=== PATIENT | female | born 1955 | race Caucasian/White ===

== ENCOUNTER → 2018-10-07 | Outpatient (CLI) | payer OTHER ==
--- NOTE | 2018-10-07 09:10 | US ---
EXAMINATION TYPE: US liver DATE OF EXAM: 10/07/2018 COMPARISON: NONE CLINICAL HISTORY: R94.5 Abnormal results of liver function test. Abnormal liver function tests EXAM MEASUREMENTS: Liver Length: 14.2 cm Gallbladder Wall: 0.1 cm CBD: 0.3 cm Right Kidney: 9.3 x 4.4 x 4.3 cm Pancreas: obscured by overlying midline bowel gas Liver: Mildly increased in echo pattern Gallbladder: wnl Evidence for sonographic Chow's sign: no CBD: wnl Right Kidney: wnl IMPRESSION: Pattern to the liver is nonspecific and be seen with fatty infiltration or hepatocellular disease correlate clinically
== END | disposition home or self-care (01) ==
LOC: RADUSWWP 08:24
PROVIDERS: ATTEND Family Medicine
DX: R94.5 Abnormal results of liver function studies (principal); Z88.5 Allergy status to narcotic agent; Z91.040 Latex allergy status; Z88.0 Allergy status to penicillin
CPT/HCPCS: 76705

== ENCOUNTER → 2020-10-02 | Outpatient (CLI) | payer BC ==
[2020-10-02 10:33] LABS: Basophils # (A) 0.03 X 10*3/uL (0.00-0.10); Basophils % (A) 0.4 %; Eosinophils # (A) 0.03 X 10*3/uL (0.04-0.35); Eosinophils % (A) 0.4 %; HCT 34.6 % (37.2-46.3); HGB 11.6 g/dL (12.0-15.0); Lymphocytes # (A) 1.41 X 10*3/uL (0.90-5.00); Lymphocytes % (A) 20.2 %; MCH 31.8 pg (27.0-32.0); MCHC 33.5 g/dL (32.0-37.0); MCV 94.8 fL (80.0-97.0); Mean Platelet Volume 10.6 fL (9.5-12.2); Monocytes # (A) 0.86 X 10*3/uL (0.20-1.00); Monocytes % (A) 12.3 %; Neutrophils # (A) 4.63 X 10*3/uL (1.80-7.70); Neutrophils % (A) 66.4 %; Platelet Count 238 X 10*3/uL (140-440); RBC 3.65 X 10*6/uL (4.10-5.20); WBC 6.98 X 10*3/uL (4.50-10.00)
[2020-10-02 10:40] LABS: ALT 13 U/L (8-44); AST 18 U/L (13-35); African American GFR (CKD) 78.3 (60.0-200.0); Albumin/Globulin Ratio 1.43 (1.60-3.17); Alkaline Phosphatase 100 U/L (41-126); BUN/Creat Ratio 13.33 Ratio (12.00-20.00); Calcium 9.8 mg/dL (8.7-10.3); Carbon Dioxide 26.9 mmol/L (21.6-31.8); Chloride 99 mmol/L (96-109); Chol/HDL Ratio 1.95; Cholesterol 195 mg/dL (0-200); Glucose 90 mg/dL (70-110); Non-African American GFR(CKD) 67.6 (60.0-200.0); Potassium 4.3 mmol/L (3.5-5.5); Sodium 133 mmol/L (135-145); Total Bilirubin 0.7 mg/dL (0.3-1.2); Total Protein 7.3 g/dL (6.2-8.2); Triglycerides <50.0 mg/dL (0.0-149.0)
== END | disposition home or self-care (01) ==
LOC: LABWHC1 07:14
PROVIDERS: ATTEND Nurse Practitioner
DX: Z00.00 Encounter for general adult medical examination without abnormal findings (principal); R53.83 Other fatigue
CPT/HCPCS: 36415; 80053; 80061; 82306; 84439; 84443; 85025

== ENCOUNTER → 2023-05-23 | Day surgery (SDC) | payer BC, MEDICARE ==
[2023-05-16 15:33] VITALS: BMI 23.2
[~2023-05-23] MED LIST: DEXAMETHASONE SOD PHOSPHATE 4 MG/ML 1 ML VIAL IV ONE; HYDROmorphone 0.5 MG/0.5 ML SYRINGE IVP PRN; LACTATED RINGERS 1,000 ML IV SCH; LIDOCAINE 1% (10MG/ML) FOR IV START INTRADERMA PRN; ONDANSETRON 4 MG/2 ML VIAL IVP ONE; droPERidol 5 MG/2 ML VIAL IVP PRN
[2023-05-23 07:08] VITALS: BP 119/72; PULSE 65; RESP 20; TEMP 97
== END ==
LOC: OR 05:47
PROVIDERS: ATTEND Podiatrist
DX: Z53.8 Procedure and treatment not carried out for other reasons (principal); M19.071 Primary osteoarthritis, right ankle and foot; F10.90 Alcohol use, unspecified, uncomplicated; Z88.0 Allergy status to penicillin; Z88.5 Allergy status to narcotic agent; Z91.040 Latex allergy status; Z82.49 Family history of ischemic heart disease and other diseases of the circulatory system; Z79.899 Other long term (current) drug therapy
CPT/HCPCS: 84132; J1100; J2405

== ENCOUNTER 2023-06-06 07:11 | Inpatient (IN) | payer MEDICARE ==
[~2023-06-06 07:11] MED LIST changes: -HYDROmorphone 0.5 MG/0.5 ML SYRINGE IVP PRN; -LACTATED RINGERS 1,000 ML IV SCH; -LIDOCAINE 1% (10MG/ML) FOR IV START INTRADERMA PRN; +MIDAZOLAM 2 MG/2 ML VIAL IV PRN; -droPERidol 5 MG/2 ML VIAL IVP PRN; +fentaNYL (PF) 50 MCG/ML 2 ML AMP IV PRN
[2023-06-06] MEDS: LACTATED RINGERS 1,000 ML IV SCH (07:50)
[2023-06-06] MEDS ORDERED: MIDAZOLAM 2 MG/2 ML VIAL IVP ONE (08:20)
[2023-06-06] MEDS ORDERED: LABETALOL SYRINGE 5 MG/ML (4 ML SYR) IVP ONE ×2 (08:32→08:56)
[2023-06-06] MEDS ORDERED: PROPOFOL 10 MG/ML 20 ML VIAL IV ONE (09:28)
[2023-06-06] MEDS ORDERED: LIDOCAINE 1% INJ 10MG/ML (20 ML MDV) ONE (09:28)
[2023-06-06] MEDS ORDERED: MIDAZOLAM 2 MG/2 ML VIAL ONE (09:28)
[2023-06-06] MEDS ORDERED: fentaNYL (PF) 50 MCG/ML 2 ML AMP ONE (09:28)
[2023-06-06] MEDS ORDERED: DEXAMETHASONE SOD PHOSPHATE 4 MG/ML 1 ML VIAL ONE (09:28)
[2023-06-06] MEDS ORDERED: ROPIVACAINE 5 MG/ML 30 ML VIAL ONE (09:28)
[2023-06-06] MEDS ORDERED: hydrALAZINE HCL 20 MG/ML 1 ML VIAL IVP ONE (09:29)
[2023-06-06] MEDS ORDERED: LACTATED RINGERS 1,000 ML IV ONE (09:50)
[2023-06-06] MEDS ORDERED: ceFAZolin 1,000 MG in SODIUM CHLORIDE 0.9% 1,000 ML IRRIGATION ONE (09:51)
--- NOTE | 2023-06-06 11:45 | P.ANPRN ---
Procedure Note - Anesthesia - Nerve Block Performed Right Adductor Canal Single Time Out Performed: Yes Date of Procedure: 06/06/23 Procedure Start Time: 08:17 Procedure Stop Time: 08:24 Location of Patient: PreOp Indication: Acute Post-Operative Pain, Requested by Surgeon Sedation Type: Sedate with meaningful contact maintained Preparation: Sterile Prep, Sterile Dressing Position: Supine Catheter: None Needle Types: Facet Needle Gauge: 20 Ultrasound used to visualize needle placement: Yes Ultrasound used to observe medication spread: Yes Injectate: 0.5% Ropivacaine (see comment for volume) (15 ml + decadron 2 mg) Blood Aspirated: No Pain Paresthesia on Injection Noted: No Resistance on Injection: Normal Image Stored and Saved: Yes Events: Uneventful and Well Tolerated Right Popliteal Single Time Out Performed: Yes Date of Procedure: 06/06/23 Procedure Start Time: : Procedure Stop Time: 08:32 Location of Patient: PreOp Indication: Acute Post-Operative Pain, Requested by Surgeon Sedation Type: Sedate with meaningful contact maintained Preparation: Sterile Prep, Sterile Dressing Position: Left Lateral Catheter: None Needle Types: Facet Needle Gauge: 20 Ultrasound used to visualize needle placement: Yes Ultrasound used to observe medication spread: Yes Injectate: 0.5% Ropivacaine (see comment for volume) (15 ml + decadron 2 mg) Blood Aspirated: No Pain Paresthesia on Injection Noted: No Resistance on Injection: Normal Image Stored and Saved: Yes Events: Uneventful and Well Tolerated
[2023-06-06] MEDS ORDERED: LABETALOL 5 MG/ML VIAL MDV IVP ONE (12:37)
--- NOTE | 2023-06-06 12:37 | P.OP ---
Date of Procedure: 06/06/23 Preoperative Diagnosis: Primary osteoarthritis navicular cuneiform joint right foot Postoperative Diagnosis: Same Procedure(s) Performed: Navicular cuneiform arthrodesis right foot Implants: Medline naviculocuneiform fusion plate with screws DBM allograft Anesthesia: SANTOSH Surgeon: Joshua Adler Estimated Blood Loss (ml): 3 Pathology: none sent Condition: stable Disposition: PACU Description of Procedure: Prior to the patient being brought to the operating room, anesthesia administered nerve block on the lower extremity. The patient was brought into the operative room and placed on table in supine position. Timeout was taken to confirm correct patient identifiers, correct laterally of surgery, and correct procedure. Once all staff in the room were in agreement the Timeout, the patient was induced placed under general anesthesia. A well-padded tourniquet was placed on the right calf and then the right foot was prepped and draped usual manner. The right leg was exsanguinated and the tourniquet inflated to 250 mmHg. Utilizing fluoroscopic guidance the first navicular cuneiform joint was identified with metallic marker. Small linear incision was made over the medial aspect of the navicular cuneiform joint. The incision was deepened down to the subcutaneous tissue careful to identify, avoid, and retract any neurovascular structures and cauterize any bleeding vessels. Blunt dissection was then carried down to level the joint capsule. The dorsal plantar incision was made through the medial joint capsule. An osteotome was inserted into the joint surfaces to distract the joint. Utilizing direct fluoroscopic visualization, a rotary bur was inserted into the joint and utilized to remove the articular cartilage as well as subchondral bone. Once completed fluoroscopy was used to make sure that the edges of the joint would come together which they did. Aggressive fenestration was performed of the conjoining surfaces of the arthrodesis site. The wound is then thoroughly irrigated with antibiotic saline. DBM allograft was then placed between the arthrodesis segments. A Medline navicular cuneiform plate was placed across the arthrodesis site. It was adjusted under fluoroscopy until it was properly aligned. It was then temporarily fixated on the navicular site. Locking screws were placed in the dorsal distal and plantar distal holes of the plate within the body of the cuneiform. Then the drill guide was inserted into the compression slot drilling was done across the arthrodesis site. Screw was inserted into the compression slot and advanced until the head of the screw engaged the plate and compressed the arthrodesis site. For scopic imaging showed that the joint was indeed compressed. The proximal dorsal and proximal plantar screws were placed in the plate through the navicular. Final fluoroscopic imaging showed good compression across the arthrodesis site and proper placement of hardware. The wound is irrigated with antibiotic saline. Subcu closure was done with 4-0 Monocryl and skin closure done with 4-0 Stratafix in a running subarticular manner. Dermal glue was applied Lunder dry then covered Steri-Strips, Arthrex jumpstart dressing, and a dry sterile dressing. Tourniquet was released and capillary refill return to all digits on the foot. The patient's placed a well-padded, well molded plaster posterior mold/sugar tong splint. Ankle and foot were held in neutral position until the splint was dried. Then anesthesia was reversed and the patient was taken recovery with vital signs stable
[2023-06-06] MEDS ORDERED: NALOXONE 0.4 MG/ML 1 ML VIAL IV PRN (14:26)
[2023-06-06] MEDS ORDERED: HYDROmorphone 1 MG/ML 1 ML SYRINGE IVP PRN (14:26)
[2023-06-06] MEDS ORDERED: ONDANSETRON 4 MG/2 ML VIAL IVP PRN (14:26)
[2023-06-06] MEDS ORDERED: HYDROcodone/APAP 5-325MG 1 EACH TAB PO PRN (14:26)
[2023-06-06] MEDS ORDERED: MELATONIN 3 MG TABLET PO PRN (14:26)
[2023-06-06] MEDS ORDERED: bisacodyL 5 MG TABLET.DR PO PRN (14:26)
[2023-06-06] MEDS ORDERED: ACETAMINOPHEN TAB 325 MG TAB PO PRN (14:26)
[2023-06-06] MEDS ORDERED: LORazepam 2 MG/ML INJ IV STA (14:28)
[2023-06-06] MEDS ORDERED: cloNIDine HCL 0.1 MG TAB PO PRN (14:37)
[2023-06-06] MEDS ORDERED: LORazepam 2 MG/ML INJ IV PRN ×3 (15:20)
--- NOTE | 2023-06-06 15:21 | P.HPIM ---
History of Present Illness H&P Date: 06/06/23 Patient is a 67-year-old female with daily alcohol intake and arthritis who initially presented for outpatient elective fusion and allograft of the right. In preop she had some elevated blood pressures which improved with medication, however postoperatively her blood pressure remained elevated despite doses labetalol 5 mg and we were asked to admit the patient for further monitoring. Patient seen and examined at bedside. She denies any chest pain, shortness breath, nausea, vomiting, lightheadedness, dizziness, she denies any blurry vision,. She had her BP done at Dr. Lind office 2 weeks ago and her BP was 120/80. This is the 16th anniveersary of her Son's . She does drink approx 6 beers daily, but has cute down to 3 pre surgery. Her last srink we yesterday morning. Vital signs reviewed General: nontoxic, no distress, appears at stated age Derm: warm, dry Eyes: EOMI, no lid lag, anicteric sclera, pupils equal round reactive to light ENT: Nose and ears atraumatic, no thrush, no pharyngeal erythema Cardiovascular: S1S2 reg, no murmur, positive posterior tibial pulse bilateral, no edema, capillary refill less than 2 seconds Lungs: clear to auscultation bilateral, no rhonchi, no rales, no wheeze, no accessory muscle use Abdominal: soft, nontender to palpation, no guarding, no appreciable organomegaly, normal bowel sounds Ext: no gross muscle atrophy, no contractures Neuro: CN II-XII grossly intact, degenerative want patient is unable to feel her right leg or move her right leg, muscle movement and touch intact in left lower extremity and bilateral upper extremities Psych: Alert, oriented, upset and anxious Assessment/Plan: Elevated blood pressures in a patient without known hypertension Anxiety related to anniversary of her son's Daily alcohol use -Try Ativan 0.5 mg IV 1 now and then every 6 hours as needed. If blood pressures remain greater than 170 after Ativan can try Catapres 0.1 mg q 8 prn hypertension. -Continue to follow blood pressures. If they remain elevated by tomorrow mo rning will start patient on long-term antihypertensive medication - CIWA with Ativan Right foot fusion due to osteoarthritis -Per Dr. Roberson's recommendations we'll give Tylenol 650 mg and Toradol 50 mg every 6 hours scheduled for the first 24 hours, -Meridian 5/325 for moderate breakthrough pain Imaging: Pending Cinical Course Data Review: Pending Cinical Course The patient is admitted with a less than 2 benign stay for elevated blood pressures DVT prophylaxis: Early ambulation Anticipated discharge date: Pending clinical course Anticipated discharge place: Pending clinical course This dictation was prepared using [employer] voice recognition software. Though every attempt is made to correct errors during dictation some may still exist. Past Medical History Past Medical History: No Reported History Additional Past Medical History / Comment(s): Arthritis in rt foot History of Any Multi-Drug Resistant Organisms: None Reported Past Surgical History: Appendectomy, Section Additional Past Surgical History / Comment(s): ankles, feet, hand & knee surgery. Cyst removed from her ovary. Past Anesthesia/Blood Transfusion Reactions: No Reported Reaction Smoking Status: Never smoker Past Alcohol Use History: Daily - Past Family History Mother Family Medical History: No Reported History Father Family Medical History: Cancer Additional Family Medical History / Comment(s): throat Medications and Allergies Home Medications Medication Instructions Recorded Confirmed Type traMADol HCL 50 mg PO Q6H PRN #30 tab 06/06/23 Rx Allergies Allergy/AdvReac Type Severity Reaction Status Date / Time codeine Allergy Hallucinati Verified 06/06/23 07:28 ons Latex, Natural Rubber Allergy Anaphylaxis Verified 06/06/23 07:28 Penicillins Allergy Unknown Verified 06/06/23 07:28 Childhood Physical Exam Osteopathic Statement: *. No significant issues noted on an osteopathic structural exam other than those noted in the History and Physical/Consult. Vitals: Vital Signs Temp Pulse Pulse Resp BP BP Pulse Ox 06/06/23 14:55 88 88 18 179/73 95 06/06/23 14:08 82 84 20 189/82 98 06/06/23 13:37 87 84 18 183/84 99 06/06/23 12:57 76 16 183/77 97 06/06/23 12:34 75 81 20 195/78 97 06/06/23 12:13 76 76 20 173/75 98 06/06/23 11:48 73 73 20 164/72 97 06/06/23 11:27 67 16 167/72 100 06/06/23 11:12 68 16 148/64 100 06/06/23 10:57 63 16 137/63 100 06/06/23 10:42 65 12 140/63 100 06/06/23 09:20 60 16 238/99 100 06/06/23 09:10 61 68 16 235/93 100 06/06/23 08:55 61 16 230/94 100 06/06/23 08:48 63 14 231/88 100 06/06/23 08:40 66 16 229/98 100 06/06/23 08:30 70 16 228/94 100 06/06/23 07:26 98.0 F 76 16 243/96 100 Intake and Output 06/06/23 06/06/23 06/06/23 06:59 14:59 22:59 Intake Total 1851 Output Total 3 Balance 1848 Intake: IV 1851 Output: Estimated Blood Loss 3 Other: Weight 58.7 kg Thrombosis Risk Factor Assmnt - Choose All That Apply Each Factor Represents 1 point: Minor surgery planned, Swollen legs (current) Other Risk Factors: Yes Each Risk Factor Represents 2 Points: Age 61-74 years Thrombosis Risk Factor Assessment Total Risk Factor Score: 4 Thrombosis Risk Factor Assessment Level: Moderate Risk
[2023-06-06] MEDS: traMADol 50 MG TAB PO SCH ×2 (18:16→21:34)
[2023-06-06] MEDS: ACETAMINOPHEN TAB 325 MG TAB PO SCH ×2 (18:16→23:55)
[2023-06-06] MEDS: LORazepam 2 MG/ML INJ IV PRN (18:18)
[2023-06-07] MEDS: ACETAMINOPHEN TAB 325 MG TAB PO SCH ×5 (05:30→23:56)
[2023-06-07] MEDS: LACTATED RINGERS 1,000 ML IV SCH (06:04)
[2023-06-07 07:17] LABS: HCT 34.6 % (34.0-46.0); HGB 11.8 gm/dL (11.4-16.0); MCH 32.7 pg (25.0-35.0); MCHC 34.2 g/dL (31.0-37.0); MCV 95.7 fL (80.0-100.0); Mean Platelet Volume 7.9; Platelet Count 242 k/uL (150-450); RBC 3.62 m/uL (3.80-5.40); RDW 13.2 % (11.5-15.5); WBC 8.9 k/uL (3.8-10.6)
[2023-06-07 07:30] LABS: African American GFR (CKD) 58 (>60 ml/min/1.73 sqM); Anion Gap 9 mmol/L; Blood Urea Nitrogen 15 mg/dL (7-17); Calcium 8.9 mg/dL (8.4-10.2); Carbon Dioxide 21 mmol/L (22-30); Chloride 102 mmol/L (98-107); Glucose 99 mg/dL (74-99); Non-African American GFR(CKD) 51 (>60 ml/min/1.73 sqM); Potassium 4.2 mmol/L (3.5-5.1); Sodium 132 mmol/L (137-145)
[2023-06-07] MEDS ORDERED: amLODIPine 2.5 MG TAB PO SCH (09:15)
[2023-06-07] MEDS: THIAMINE 100 MG TAB PO SCH (09:38)
[2023-06-07] MEDS: traMADol 50 MG TAB PO SCH ×5 (09:38→21:21)
[2023-06-07] MEDS: FOLIC ACID 1 MG TAB PO SCH (09:38)
[2023-06-07] MEDS: LORazepam 2 MG/ML INJ IV PRN (13:47)
[2023-06-07] MEDS: LOSARTAN 50 MG TAB PO SCH (15:29)
--- NOTE | 2023-06-07 16:05 | P.CRDCN ---
History of Present Illness Consult date: 06/07/23 Consult reason: hypertension Chief complaint: HTN History of present illness: History of present illness: Patient is a pleasant 67-year-old female with significant past medical history of alcohol abuse and arthritis who presented for elective outpatient fusion of right foot. She was found to have some elevated blood pressures preoperatively however was controlled by medication. Postoperatively blood pressures remained elevated despite medications and cardiology was consulted. She does not smoke. She does admit to drinking 6-10 beers a day. Denies any drug use. She reports that she has been feeling well with no chest pain or pressure. She denies having any shortness of breath, dizziness, headaches, swelling. She does admit that she has been upset about the anniversary of her son's 16 years ago. She denies having a history of withdrawals when she stops drinking alcohol. She does not check her blood pressure at home and is not on any medications at home. She has not had a prior cardiac workup. EKG shows sinus rhythm with left ventricular hypertrophy. REVIEW OF SYSTEMS: No fever or chills. No cough or expectoration. No diaphoresis. Patient denies headache, dizziness, blurred vision, double vision. Patient denies any stomach discomfort. No nausea, vomiting. No hematochezia. No hematemesis. Denies any black stools or blood in his stools. Denies dysuria or hematuria. No muscle weakness or numbness. No chest pain or pressure. PHYSICAL EXAMINATION: This is a 67 year-old female in no apparent distress at the time of my examination. HEENT: Head is atraumatic, normocephalic. Pupils are equal, round. Sclerae anicteric. Conjunctivae are clear. Mucous membranes of the mouth are moist. Neck is supple. There is no jugular venous distention. No carotid bruit is heard. CHEST EXAMINATION: Lungs are clear to auscultation. No chest wall tenderness is noted on palpation or with deep breathing. HEART EXAMINATION: Heart regular rate and rhythm. S1, S2 heard. No murmurs, gallops or rub. ABDOMEN: Soft, nontender. Bowel sounds are heard. EXTREMITIES: 2+ peripheral pulses with no evidence of peripheral edema and no calf tenderness noted. Right foot in cast. NEUROLOGIC EXAMINATION: Patient is awake, alert and oriented x3. IMPRESSION AND PLAN: Hypertension Alcohol abuse Osteoarthritis LVH PLAN: We will check echocardiogram to evaluate heart function and structure. Stop Catapres. Start losartan 50 mg by mouth daily. Recommend hydralazine when necessary. Limit salt intake. Discussed decreasing alcohol intake, monitor for withdrawal symptoms. We will follow. I am dictating on behalf of Dr. Teto Amor's history/physical and assessment/plan. Past Medical History Past Medical History: No Reported History Additional Past Medical History / Comment(s): Arthritis in rt foot History of Any Multi-Drug Resistant Organisms: None Reported Past Surgical History: Appendectomy, Section Additional Past Surgical History / Comment(s): ankles, feet, hand & knee surgery. Cyst removed from her ovary. Past Anesthesia/Blood Transfusion Reactions: No Reported Reaction Smoking Status: Never smoker Past Alcohol Use History: Daily - Past Family History Mother Family Medical History: No Reported History Father Family Medical History: Cancer Additional Family Medical History / Comment(s): throat Medications and Allergies Home Medications Medication Instructions Recorded Confirmed Type traMADol HCL 50 mg PO Q6H PRN #30 tab 06/06/23 Rx Allergies Allergy/AdvReac Type Severity Reaction Status Date / Time codeine Allergy Hallucinati Verified 06/06/23 07:28 ons Latex, Natural Rubber Allergy Anaphylaxis Verified 06/06/23 07:28 Penicillins Allergy Unknown Verified 06/06/23 07:28 Childhood Physical Exam Vitals: Vital Signs Temp Pulse Pulse Resp BP BP Pulse Ox 06/07/23 14:58 86 167/66 06/07/23 12:57 98.0 F 73 20 181/72 204/92 97 06/07/23 07:41 98.2 F 62 18 176/70 98 06/07/23 01:50 98.3 F 76 18 155/76 96 06/06/23 21:00 162/75 06/06/23 20:15 78 90 18 06/06/23 19:48 98.1 F 78 18 181/72 96 06/06/23 18:32 90 166/78 94 L 06/06/23 18:02 89 184/75 95 06/06/23 17:47 90 160/82 94 L 06/06/23 17:32 84 178/80 96 06/06/23 17:17 89 175/81 95 06/06/23 17:02 91 172/83 97 06/06/23 16:40 97 96 20 176/79 97 Intake and Output 06/07/23 06/07/23 06/07/23 06:59 14:59 22:59 Intake Total 300 Balance 300 Intake: Oral 300 Other: Voiding Method Bedside Commode # Voids 1 2 Results 06/07/23 06:26 06/07/23 06:26 CBC 06/07/23 Range/Units 06:26 WBC 8.9 (3.8-10.6) k/uL RBC 3.62 L (3.80-5.40) m/uL Hgb 11.8 (11.4-16.0) gm/dL Hct 34.6 (34.0-46.0) % Plt Count 242 (150-450) k/uL Comprehensive Metabolic Panel 06/07/23 Range/Units 06:26 Sodium 132 L (137-145) mmol/L Potassium 4.2 (3.5-5.1) mmol/L Chloride 102 (98-107) mmol/L Carbon Dioxide 21 L (22-30) mmol/L BUN 15 (7-17) mg/dL Creatinine 1.14 H (0.52-1.04) mg/dL Glucose 99 (74-99) mg/dL Calcium 8.9 (8.4-10.2) mg/dL Current Medications Generic Name Dose Route Start Last Admin Trade Name Kingstonq PRN Reason Stop Dose Admin Acetaminophen 650 mg 06/06/23 18:00 06/07/23 13:18 Acetaminophen Tab 325 Mg Tab PO 07/06/23 18:01 650 mg Q6HR CEDRIC Administration Hydrocodone Bitart/Acetaminophen 1 each 06/06/23 14:26 Hydrocodone/Apap 5-325mg 1 Each Tab PO 07/06/23 14:27 Q4HR PRN Moderate Pain (Scale 4 to 6) Amlodipine Besylate 2.5 mg 06/07/23 09:15 06/07/23 09:38 Amlodipine 2.5 Mg Tab PO 2.5 mg DAILY CEDRIC Administration Bisacodyl 5 mg 06/06/23 14:26 Bisacodyl 5 Mg Tablet.Dr PO 07/06/23 14:27 DAILY PRN Constipation Folic Acid 1 mg 06/07/23 09:00 06/07/23 09:38 Folic Acid 1 Mg Tab PO 07/07/23 09:01 1 mg DAILY CEDRIC Administration Hydromorphone HCl 1 mg 06/06/23 14:26 Hydromorphone 1 Mg/Ml 1 Ml Syringe IVP 07/06/23 14:27 Q3HR PRN Severe Pain (Scale 7 to 10) Lactated Ringer's 1,000 mls @ 20 mls/hr 06/06/23 06:04 06/07/23 06:04 Lactated Ringers IV 07/06/23 06:05 20 mls/hr .Q24H CEDRIC Administration Lorazepam 1 mg 06/06/23 15:20 Lorazepam 2 Mg/Ml Inj IV 07/06/23 15:21 Q1HR PRN CIWA 10 to 15 Lorazepam 1 mg 06/06/23 15:20 Lorazepam 2 Mg/Ml Inj IV 07/06/23 15:21 Q2HR PRN CIWA 8 or 9 Lorazepam 2 mg 06/06/23 15:20 Lorazepam 2 Mg/Ml Inj IV 06/08/23 15:21 Q10M PRN CIWA 16 or higher Lorazepam 0.5 mg 06/06/23 17:31 06/07/23 13:47 Lorazepam 2 Mg/Ml Inj IV 0.5 mg Q6HR PRN Administration Anxiety Losartan Potassium 50 mg 06/07/23 14:30 06/07/23 15:29 Losartan 50 Mg Tab PO 50 mg DAILY CEDRIC Administration Melatonin 3 mg 06/06/23 14:26 Melatonin 3 Mg Tablet PO 07/06/23 14:27 HS PRN Insomnia Naloxone HCl 0.2 mg 06/06/23 14:26 Naloxone 0.4 Mg/Ml 1 Ml Vial IV 07/06/23 14:27 Q2M PRN Opioid Reversal Ondansetron HCl 4 mg 06/06/23 14:26 Ondansetron 4 Mg/2 Ml Vial IVP 07/06/23 14:27 Q8HR PRN Nausea And Vomiting Thiamine HCl 100 mg 06/07/23 09:00 06/07/23 09:38 Thiamine 100 Mg Tab PO 07/07/23 09:01 100 mg DAILY CEDRIC Administration Tramadol HCl 50 mg 06/06/23 18:00 06/07/23 13:18 Tramadol 50 Mg Tab PO 07/06/23 18:01 50 mg QID CEDRIC Administration Intake and Output 06/07/23 06/07/23 06/07/23 06:59 14:59 22:59 Intake Total 300 Balance 300 Intake: Oral 300 Other: Voiding Method Bedside Commode # Voids 1 2 06/07/23 06:26 06/07/23 06:26
--- NOTE | 2023-06-07 17:35 | P.PN ---
Subjective Progress Note Date: 06/07/23 (delayed charting seen at 0930) Patient is a 67-year-old female with daily alcohol intake and arthritis who initially presented for outpatient elective fusion and allograft of the right. In preop she had some elevated blood pressures which improved with medication, however postoperatively her blood pressure remained elevated despite labetalol 5 mg the patient was subsequently admitted. She was started on ativan and prn catapress. Here BP was improved aftger a dose of ativan but then again elevated overnight. Patient seen and examined at bedside. She states that she is feeling calm. She denies any chest pain, shortness of breath, light headedness, dizziness. She deneis feeling anxious, how ever appears withdrawn wiht short 1 word answers Vital signs reviewed General: nontoxic, no distress, appears at stated age Cardiovascular: S1S2 reg, no murmur, positive posterior tibial pulse bilateral, Lungs: Decrease bs bilateral, no rhonchi, no rales , no accessory muscle use Ext: no gross muscle atrophy, right foot in cast no contractures Neuro: CN II-XI grossly intact, no focal neuro deficits Psych: Alert, oriented, appropriate affect Assessment/Plan: 67 yo F s/p right foot fusion with allograft. Elevated BP without preexisting diagnosis of HTN Daily ETOH dependency - Consult cardio - tried norvasc 2.5 mg with increase in BP. I fell that BP increase is related to ETOH withdrawal. - Continue Ativan 0.5 mg IV every 6 hours as needed. - CIWA with Ativan dosing per scale Right foot fusion due to osteoarthritis -Per Dr. Roberson's recommendations we'll give Tylenol 650 mg and Toradol 50 mg every 6 hours scheduled for the first 24 hours, -Point 5/325 for moderate breakthrough pain Imaging: None Data Review: Labs reviewed included CBC and basic metabolic profile which are remarkable for hemoglobin 11.8, sodium 132, creatinine 1.14 DVT prophylaxis: lovenox Anticipate discharge home in a.m. This dictation was prepared using [employer] voice recognition software. Though every attempt is made to correct errors during dictation some may still exist. Objective - Vital Signs Vital signs: Vital Signs Temp 98.0 F 06/07/23 12:57 Pulse 86 06/07/23 14:58 Resp 20 06/07/23 12:57 BP 167/66 06/07/23 14:58 Pulse Ox 97 06/07/23 12:57 FiO2 Intake & Output 06/06/23 06/07/23 06/07/23 18:59 06:59 18:59 Intake Total 1901 300 Output Total 3 Balance 1898 300 Weight 58.7 kg Intake: IV 1901 Oral 300 Output: Estimated Blood Loss 3 Other: Voiding Method Bedside Commode Bedside Commode # Voids 1 2 - Labs CBC & Chem 7: 06/07/23 06:26 06/07/23 06:26 Labs: Abnormal Lab Results - Last 24 Hours (Table) 06/07/23 06/07/23 Range/Units 06:26 06:26 RBC 3.62 L (3.80-5.40) m/uL Sodium 132 L (137-145) mmol/L Carbon Dioxide 21 L (22-30) mmol/L Creatinine 1.14 H (0.52-1.04) mg/dL
[2023-06-07] MEDS: LORazepam 0.5 MG TAB PO PRN ×2 (18:25→23:56)
[2023-06-08] MEDS: ACETAMINOPHEN TAB 325 MG TAB PO SCH ×2 (05:58→12:46)
[2023-06-08] MEDS: LORazepam 0.5 MG TAB PO PRN (05:58)
[2023-06-08] MEDS: LACTATED RINGERS 1,000 ML IV SCH (05:59)
[2023-06-08] MEDS: LOSARTAN 50 MG TAB PO SCH (08:39)
[2023-06-08] MEDS: FOLIC ACID 1 MG TAB PO SCH (08:39)
[2023-06-08] MEDS: ENOXAPARIN 40 MG/0.4 ML SYRINGE SQ SCH (08:39)
[2023-06-08] MEDS: traMADol 50 MG TAB PO SCH ×2 (08:39→12:46)
[2023-06-08] MEDS: THIAMINE 100 MG TAB PO SCH (08:39)
[2023-06-08] MEDS ORDERED: LOSARTAN 50 MG TAB PO STA (10:13)
[2023-06-08] MEDS ORDERED: amLODIPine 5 MG TAB PO SCH (10:15)
--- NOTE | 2023-06-08 13:48 | P.PN ---
Subjective Progress Note Date: 06/08/23 History of present illness: Patient is a pleasant 67-year-old female with significant past medical history of alcohol abuse and arthritis who presented for elective outpatient fusion of right foot. She was found to have some elevated blood pressures preoperatively however was controlled by medication. Postoperatively blood pressures remained elevated despite medications and cardiology was consulted. She does not smoke. She does admit to drinking 6-10 beers a day. Denies any drug use. She reports that she has been feeling well with no chest pain or pressure. She denies having any shortness of breath, dizziness, headaches, swelling. She does admit that she has been upset about the anniversary of her son's 16 years ago. She denies having a history of withdrawals when she stops drinking alcohol. She does not check her blood pressure at home and is not on any medications at home. She has not had a prior cardiac workup. EKG shows sinus rhythm with left ventricular hypertrophy. 06/08/2023 Patient is feeling well, no significant pain. No chest pain or shortness of breath. She is frustrated that her blood pressure is still high. Recheck at time of eval was 193/91. PHYSICAL EXAMINATION: This is a 67 year-old female in no apparent distress at the time of my examination. HEENT: Head is atraumatic, normocephalic. Pupils are equal, round. Sclerae anicteric. CHEST EXAMINATION: Lungs are clear to auscultation. No chest wall tenderness is noted on palpation or with deep breathing. HEART EXAMINATION: Heart regular rate and rhythm. S1, S2 heard. No murmurs, gallops or rub. ABDOMEN: Soft, nontender. Bowel sounds are heard. EXTREMITIES: 2+ peripheral pulses with no evidence of peripheral edema and no calf tenderness noted. Right foot in cast. NEUROLOGIC EXAMINATION: Patient is awake, alert and oriented x3. IMPRESSION AND PLAN: Hypertension Alcohol abuse Osteoarthritis LVH PLAN: We will check echocardiogram to evaluate heart function and structure- PENDING. Increase losartan to 100 mg by mouth daily. Resume norvasc 5mg po daily. Recommend hydralazine when necessary. Limit salt intake. Discussed decreasing alcohol intake, monitor for withdrawal symptoms. We will follow. I am dictating on behalf of Dr. Teto Amor's history/physical and assessment/plan. Objective - Vital Signs Vital signs: Vital Signs Temp 97.9 F 06/08/23 07:40 Pulse 75 06/08/23 07:40 Resp 18 06/08/23 07:40 BP 205/78 06/08/23 07:40 Pulse Ox 97 06/08/23 07:40 FiO2 Intake & Output 06/07/23 06/08/23 06/08/23 18:59 06:59 18:59 Other: Voiding Method Bedside Commode Bedside Commode # Voids 2 1 - Labs CBC & Chem 7: 06/07/23 06:26 06/07/23 06:26
[2023-06-08] MEDS ORDERED: hydrALAZINE HCL 20 MG/ML 1 ML VIAL IVP STA ×2 (15:38→17:55)
[2023-06-08] MEDS ORDERED: hydroCHLOROthiazide 12.5 MG CAP PO ONE (15:45)
[2023-06-08] MEDS ORDERED: ACETAMINOPHEN TAB 325 MG TAB PO PRN (17:08)
[2023-06-08] MEDS ORDERED: traMADol 50 MG TAB PO PRN (17:08)
--- NOTE | 2023-06-08 17:08 | P.PN ---
Subjective Progress Note Date: 06/08/23 (delayed charting seen at 1400) Patient is a 67-year-old female with daily alcohol intake and arthritis who initially presented for outpatient elective fusion and allograft of the right. In preop she had some elevated blood pressures which improved with medication, however postoperatively her blood pressure remained elevated despite labetalol 5 mg the patient was subsequently admitted. She was started on ativan and prn catapress. Here BP was improved aftger a dose of ativan but then again elevated overnight. Patient was seen by cardiology. She was started on losartan 50 mg, when her blood pressure continued to be elevated she is given extra doses of Ativan which initially decreased her blood pressure. However she was not showing any further signs of alcohol withdrawal and despite if the of losartan continued to be hypertensive and this was increased. Patient seen and examined at bedside. He denies any chest pain, headache, lightheadedness, dizziness. Discussed with patient and that we'll need to escalate her therapy she continues to have significantly elevated blood pressure at greater than 200 despite administration of Norvasc at escalating doses of losartan. Vital signs reviewed General: nontoxic, no distress, appears at stated age Cardiovascular: S1S2 reg, no murmur, positive posterior tibial pulse bilateral, Lungs: Decrease bs bilateral, no rhonchi, no rales , no accessory muscle use Ext: no gross muscle atrophy, right foot in cast no contractures, 1+ edema b/l hip region Neuro: CN II-XI grossly intact, no focal neuro deficits Psych: Alert, oriented, appropriate affect Assessment/Plan: 67 yo F s/p right foot fusion with allograft. Elevated BP without preexisting diagnosis of HTN Daily ETOH dependency - Appreciate cardio recs: losartan increased to 100 mg, norvasc 5 mg -Despite administration of losartan 100 mg greater than 2 hours ago and Norvasc this morning patient continues to have elevated blood pressures at greater than 200. We'll give hydralazine 5 mg IV push 1 now his oral medications has not mitigated her hypertension. Due to the possibility of increased salt retention given her recent surgery we'll add hydrochlorothiazide 12.5 mg by mouth 1 now. If this is effective could consider repeating in a.m. -Suggest that tomorrow on 06/09 Dr. Staton's office is contacted for patient's blood pressure in the outpatient setting for the last 1 year. - Continue Ativan 0.5 mg IV every 6 hours as needed. - CIWA with Ativan dosing per scale Right foot fusion due to osteoarthritis -Transition Tylenol 650 mg and Toradol 50 mg every 6 hours as needed for pain -[place] 5/325 for moderate breakthrough pain Imaging: None Data Review: Labs reviewed included CBC and basic metabolic profile which are remarkable for hemoglobin 11.8, sodium 132, creatinine 1.14 DVT prophylaxis: lovenox Anticipate discharge home in a.m. This dictation was prepared using [employer] voice recognition software. Though every attempt is made to correct errors during dictation some may still exist. Objective - Vital Signs Vital signs: Vital Signs Temp 97.9 F 06/08/23 12:20 Pulse 85 06/08/23 15:31 Resp 17 06/08/23 12:20 BP 215/82 06/08/23 15:31 Pulse Ox 98 06/08/23 12:20 FiO2 Intake & Output 06/07/23 06/08/23 06/08/23 18:59 06:59 18:59 Other: Voiding Method Bedside Commode Bedside Commode # Voids 2 1 1 - Labs CBC & Chem 7: 06/07/23 06:26 06/07/23 06:26
[2023-06-08] MEDS: hydrALAZINE HCL 25 MG TAB PO PRN (21:35)
[2023-06-09] MEDS: LACTATED RINGERS 1,000 ML IV SCH (06:13)
[2023-06-09] MEDS: ENOXAPARIN 40 MG/0.4 ML SYRINGE SQ SCH (08:41)
[2023-06-09] MEDS: THIAMINE 100 MG TAB PO SCH (08:41)
[2023-06-09] MEDS: FOLIC ACID 1 MG TAB PO SCH (08:41)
[2023-06-09] MEDS ORDERED: hydroCHLOROthiazide 25 MG TAB PO SCH (09:00)
[2023-06-09] MEDS ORDERED: LOSARTAN 50 MG TAB PO SCH (09:00)
[2023-06-09] MEDS ORDERED: amLODIPine 5 MG TAB PO SCH (09:00)
--- NOTE | 2023-06-09 11:21 | P.PN ---
Subjective Progress Note Date: 06/09/23 History of present illness: Patient is a pleasant 67-year-old female with significant past medical history of alcohol abuse and arthritis who presented for elective outpatient fusion of right foot. She was found to have some elevated blood pressures preoperatively however was controlled by medication. Postoperatively blood pressures remained elevated despite medications and cardiology was consulted. She does not smoke. She does admit to drinking 6-10 beers a day. Denies any drug use. She reports that she has been feeling well with no chest pain or pressure. She denies having any shortness of breath, dizziness, headaches, swelling. She does admit that she has been upset about the anniversary of her son's 16 years ago. She denies having a history of withdrawals when she stops drinking alcohol. She does not check her blood pressure at home and is not on any medications at home. She has not had a prior cardiac workup. EKG shows sinus rhythm with left ventricular hypertrophy. 06/08/2023 Patient is feeling well, no significant pain. No chest pain or shortness of breath. She is frustrated that her blood pressure is still high. Recheck at time of eval was 193/91. 06/09 Patient is seen today in follow-up. Patient states that she had a great night. She continues to have right ankle pain with cast on the right ankle. She states it's intermittent. No chest pain. She denies any history of hypertension in the past. Discussed alcohol cessation with her today. Echocardiogram has been obtained this morning and report is pending. PHYSICAL EXAMINATION: This is a 67 year-old female in no apparent distress at the time of my examination. HEENT: Head is atraumatic, normocephalic. Pupils are equal, round. Sclerae anicteric. CHEST EXAMINATION: Lungs are clear to auscultation. No chest wall tenderness is noted on palpation or with deep breathing. HEART EXAMINATION: Heart regular rate and rhythm. S1, S2 heard. No murmurs, gallops or rub. ABDOMEN: Soft, nontender. Bowel sounds are heard. EXTREMITIES: 2+ peripheral pulses with no evidence of peripheral edema and no calf tenderness noted. Right foot in cast. NEUROLOGIC EXAMINATION: Patient is awake, alert and oriented x3. IMPRESSION AND PLAN: Hypertension Alcohol abuse Osteoarthritis LVH PLAN: Obtain echocardiogram report Continued increased dose of losartan 100 mg daily and increase Norvasc to 5 mg twice daily If echocardiogram is within normal limits, patient is cleared from cardiology for discharge. Patient may follow-up in the office in 2 weeks. Nurse practitioner note has been reviewed, I agree with the documented findings and plan of care. Patient was seen and examined. Objective - Vital Signs Vital signs: Vital Signs Temp 98.3 F 06/09/23 07:34 Pulse 88 06/09/23 07:34 Resp 17 06/09/23 07:34 BP 215/85 06/09/23 07:34 Pulse Ox 97 06/09/23 07:34 FiO2 Intake & Output 06/08/23 06/09/23 06/09/23 18:59 06:59 18:59 Other: Voiding Method Bedside Commode # Voids 1 1 - Labs CBC & Chem 7: 06/07/23 06:26 06/07/23 06:26
[2023-06-09 12:28] VITALS: RESP 18; TEMP 98.1
--- NOTE | 2023-06-09 13:43 | CA ---
Transthoracic Echo Report Name: Mari Hernandez Age: 67 Gender: F : 1955 Exam Date: 06/09/2023 09:19 Exam Location: [facility] Ht (in): 62 Wt (lb): 129 Ordering Physician: Demetria Oakley Attending/Referring Phys: Senior Linux Systems Engineer Dominick Banuelos Procedure CPT: Indications: Hypertension Cardiac Hx: Technical Quality: Fair Contrast 1: Total Dose (mL): Contrast 2: Total Dose (mL): MEASUREMENTS (Male / Female) Normal Values 2D ECHO LV Diastolic Diameter PLAX 3.1 cm 4.2 - 5.9 / 3.9 - 5.3 cm LV Systolic Diameter PLAX 2.1 cm IVS Diastolic Thickness 2.0 cm 0.6 - 1.0 / 0.6 - 0.9 cm LVPW Diastolic Thickness 1.3 cm 0.6 - 1.0 / 0.6 - 0.9 cm LV Relative Wall Thickness 1.1 RV Internal Dim ED PLAX 3.0 cm LVOT Diameter 2.0 cm Aortic Root Diameter 3.0 cm LA Systolic Diameter LX 2.1 cm 3.0 - 4.0 / 2.7 - 3.8 cm LV Diastolic Volume MOD BP 28.6 cm??? 67 - 155 / 56 - 104 cm??? LV Systolic Volume MOD BP 8.8 cm??? / 19 - 49 cm??? LV Ejection Fraction MOD BP 69.4 % >= 55 % LV Cardiac Index MOD BP 1108.5 cm???/min???m??? LV Diastolic Volume MOD 4C 28.6 cm??? LV Systolic Volume MOD 4C 8.4 cm??? LV Ejection Fraction MOD 4C 70.6 % LV Cardiac Index MOD 4C 1128.2 cm???/min???m??? LV Diastolic Length 4C 5.8 cm LV Systolic Length 4C 5.8 cm LV Diastolic Volume MOD 2C 26.7 cm??? LV Systolic Volume MOD 2C 8.8 cm??? LV Ejection Fraction MOD 2C 66.9 % LV Cardiac Index MOD 2C 1000.1 cm???/min???m??? LV Diastolic Length 2C 6.2 cm LV Systolic Length 2C 5.6 cm LA Volume 35.4 cm??? - / 22 - 52 cm??? LA Volume Index 22.0 cm???/m??? 16 - 28 cm???/m??? Ascending Aorta Diameter 3.1 cm DOPPLER AV Peak Velocity 136.2 cm/s AV Peak Gradient 7.4 mmHg LVOT Peak Velocity 123.0 cm/s LVOT Peak Gradient 6.1 mmHg LVOT Velocity Time Integral 22.8 cm LVOT Stroke Volume 68.5 cm??? LVOT Stroke Volume Index 43.2 ml/m??? LVOT Cardiac Index 3833.0 cm???/min???m??? AV Area Cont Eq pk 2.7 cm??? MV Peak Velocity 118.7 cm/s MV Peak Gradient 5.6 mmHg MV Mean Velocity 60.6 cm/s MV Mean Gradient 1.8 mmHg MV Velocity Time Integral 31.4 cm Mitral E Point Velocity 60.0 cm/s Mitral A Point Velocity 107.9 cm/s Mitral E to A Ratio 0.6 MV Deceleration Time 340.1 ms PV Peak Velocity 108.5 cm/s PV Peak Gradient 4.7 mmHg FINDINGS Left Ventricle Normal LV size.normal left ventricular wall motion. Severely increased left ventricular wall thickness. Left ventricular ejection fraction is estimated at 55-60 %. Right Ventricle Normal right ventricular size. Right Atrium Normal right atrial size. Left Atrium Normal left atrial size. LA volume index= 22ml/m2 Mitral Valve Severe mitral annulus calcification with mild regurgitation Aortic Valve Trileaflet aortic valve. No aortic valve stenosis or regurgitation.aortic valve sclerosis. Tricuspid Valve Structurally normal tricuspid valve. Trace TR. Pulmonic Valve Structurally normal pulmonic valve. Mild PI. Pericardium Normal pericardium. Aorta Normal size aortic root. CONCLUSIONS 1. Normal left ventricle size and systolic function with severe left ventricle hypertrophy 2. Mild mitral regurgitation. Previewed by: Dr. Sigifredo Sherman MD (Electronically Signed) Final Date: 09 June 2023 13:42
--- NOTE | 2023-06-09 14:51 | P.DS ---
Providers Date of admission: 06/09/23 12:23 Expected date of discharge: 06/09/23 Attending physician: Charis Schreiber DO Consults: 06/06/23 12:50 Consult Physician Stat Consulting Provider: Charis Schreiber Consult Reason/Comments: HTN SOUND TO BE ADMITTING DR Do you want consulting provider notified?: Already Contacted 06/07/23 13:38 Consult Physician Routine Consulting Provider: Teto Amor Consult Reason/Comments: HTN Do you want consulting provider notified?: Yes Primary care physician: Garfield Staton Hospital Course: Discharge Diagnosis: Hypertensive urgency Alcohol dependence Status post right foot fusion Hospital Course: Patient is a 67-year-old female with daily alcohol intake and arthritis who initially presented for outpatient elective fusion and allograft of the right foot. In preop she had some elevated blood pressures which improved with medication, however postoperatively her blood pressure remained elevated despite labetalol 5 mg the patient was subsequently admitted. She was started on ativan and prn catapress. Here BP was improved aftger a dose of ativan but then again elevated overnight. Patient was seen by cardiology. Echocardiogram, shows normal LV size and systolic function, with severe LVH. This is suggestive of long-standing hypertension. Patient being discharged on amlodipine, losartan, and hydrochlorothiazide. Patient to follow cardiology and PCP outpatient. Patient seen and examined at bedside. Vital signs reviewed and stable. General: nontoxic, no distress, appears at stated age Cardiovascular: S1S2 reg, no murmur, positive posterior tibial pulse bilateral, Lungs: Decrease bs bilateral, no rhonchi, no rales , no accessory muscle use Ext: no gross muscle atrophy, right foot in cast no contractures, 1+ edema b/l hip region Neuro: CN II-XI grossly intact, no focal neuro deficits Psych: Alert, oriented, appropriate affect A total of 36 minutes of time were spent preparing this complex discharge summary. Patient was discharged on 06/09/23 at 14:48. Patient Condition at Discharge: Stable Plan - Discharge Summary Discharge Rx Participant: No New Discharge Prescriptions: New traMADol HCL 50 mg PO Q6H PRN #30 tab PRN Reason: Pain Losartan [Cozaar] 100 mg PO DAILY #60 tab amLODIPine [Norvasc] 5 mg PO BID #60 tab Folic Acid 1 mg PO DAILY #60 tab hydroCHLOROthiazide [Hydrodiuril] 25 mg PO DAILY #60 tab Thiamine [Vitamin B-1] 100 mg PO DAILY #60 tab Discharge Medication List traMADol HCL 50 mg PO Q6H PRN #30 tab 06/06/23 [Rx] Folic Acid 1 mg PO DAILY #60 tab 06/09/23 [Rx] Losartan [Cozaar] 100 mg PO DAILY #60 tab 06/09/23 [Rx] Thiamine [Vitamin B-1] 100 mg PO DAILY #60 tab 06/09/23 [Rx] amLODIPine [Norvasc] 5 mg PO BID #60 tab 06/09/23 [Rx] hydroCHLOROthiazide [Hydrodiuril] 25 mg PO DAILY #60 tab 06/09/23 [Rx] Follow up Appointment(s)/Referral(s): Teto Amor DO [STAFF PHYSICIAN] - 2 Weeks Joshua Adler DPM [Doctor of Osteopathic Medicine] - 06/12/23 1:35 pm Patient Instructions/Handouts: *Surgery [facility] - (Adler) Discharge Instructins Foot Surgery, *Surgery [facility] - (Anesthesia) Discharge Instructions Outpatient Surgery, Crutch Instructions (DC), Peripheral Nerve Block (DC), Chronic Hypertension (DC), Mediterranean Diet (DC) Activity/Diet/Wound Care/Special Instructions: Keep the splint clean, dry, and intact. Do not remove Keep foot elevated above your heart when resting Apply ice behind the knee continuously for the first 24 hours. Then apply 1 hour on/1 [address] off thereafter. Do not place weight on the surgical side Use crutches, walker, etc. for mobility Take 1 prescribed Tramadol tablet together with (1) 500mg extra strength tylenol up to 4 times/day as needed for pain Regular diet as tolerated Follow up with primary care doctor re: elevated BP, record multiple BP and heart rate readings in home setting and bring to primary care doctor Discharge Disposition: HOME SELF-CARE
[2023-06-09] MEDS: hydrALAZINE HCL 25 MG TAB PO PRN (16:29)
[2023-06-09 17:22] VITALS: BP 186/82; PULSE 79
== END 2023-06-09 17:36 | disposition home or self-care (01) | DRG 983 ==
LOC: OR 07:11 → 5NMEDONC 10:42 → OBSVTOIN 06-09 12:23
PROVIDERS: ADMIT Internal Medicine; ATTEND Internal Medicine
PROC: 0SGH0KZ Fusion of Right Tarsal Joint with Nonautologous Tissue Substitute, Open Approach (ICD-10-PCS; principal; 2023-06-06 09:00)
DX: I16.0 Hypertensive urgency (principal); M19.071 Primary osteoarthritis, right ankle and foot; F10.10 Alcohol abuse, uncomplicated; Z88.5 Allergy status to narcotic agent; Z88.0 Allergy status to penicillin; Z88.8 Allergy status to other drugs, medicaments and biological substances
CPT/HCPCS: 64445; 64447; 80048; 85027; 93005; 93306

== ENCOUNTER → 2024-01-27 | Outpatient (CLI) | payer MEDICARE ==
--- NOTE | 2024-01-27 11:58 | XR ---
EXAMINATION TYPE: XR ribs bilat w pa chest xray DATE OF EXAM: 01/27/2024 11:41 AM CLINICAL INDICATION:Female, 68 years old with history of R07.81 PLEURODYNIA; [facility] COMPARISON: None TECHNIQUE: XR ribs bilat w pa chest xray; Frontal and oblique views of the ribs with frontal chest ra diograph. FINDINGS: The ribs have a normal appearance. No evidence of fracture. Overall, the lungs are clear. The cardiac silhouette is normal in size. The remaining osseous structures are intact. IMPRESSION: No displaced rib fracture definitely visualized
== END | disposition home or self-care (01) ==
LOC: RADXRMAIN 11:07
PROVIDERS: ATTEND Nurse Practitioner Family
DX: R07.81 Pleurodynia (principal)
CPT/HCPCS: 71111

== ENCOUNTER 2024-10-18 08:59 | Emergency (ER) | payer MEDICARE ==
--- NOTE | 2024-10-18 09:54 | ED ---
General Adult HPI - General Chief complaint: Neuro Symptoms/Deficit Stated complaint: R side weakness Time Seen by Provider: 10/18/24 09:13 Source: patient, family, EMS Mode of arrival: EMS Limitations: no limitations - History of Present Illness Initial comments: Dictation was produced using [employer] dictation software. please excuse any grammatical, word or spelling errors. Chief Complaint: 69-year-old female with right arm paralysis History of Present Illness: Patient is a 69-year-old female she has multiple comorbidities. States that most of her care is done at [facility]. Last night she was fine. This morning she woke up was unable to use her right arm and right leg. States that she regained function in her right leg but not in h er right arm. Despite having had multiple strokes in the past she does not have any residual effects affecting her upper extremities. She states that previous strokes has caused chronic visual disturbance and neuropathy. Denies any pain complaints. History of present illness obtained from daughters and at the bedside The ROS documented in this emergency department record has been reviewed and confirmed by me. Those systems with pertinent positive or negative responses have been documented in the HPI. All other systems are other negative and/or noncontributory. - Related Data Previous Rx's Medication Instructions Recorded traMADol HCL 50 mg PO Q6H PRN #30 tab 06/06/23 Folic Acid 1 mg PO DAILY #60 tab 06/09/23 Losartan [Cozaar] 100 mg PO DAILY #60 tab 06/09/23 Thiamine [Vitamin B-1] 100 mg PO DAILY #60 tab 06/09/23 amLODIPine [Norvasc] 5 mg PO BID #60 tab 06/09/23 hydroCHLOROthiazide [Hydrodiuril] 25 mg PO DAILY #60 tab 06/09/23 Allergies Allergy/AdvReac Type Severity Reaction Status Date / Time codeine Allergy Hallucinati Verified 10/18/24 09:08 ons Latex, Natural Rubber Allergy Anaphylaxis Verified 10/18/24 09:08 Penicillins Allergy Unknown Verified 10/18/24 09:08 Childhood Review of Systems ROS Statement: Those systems with pertinent positive or pertinent negative responses have been documented in the HPI. ROS Other: All systems not noted in ROS Statement are negative. Past Medical History Past Medical History: No Reported History Additional Past Medical History / Comment(s): Arthritis in rt foot History of Any Multi-Drug Resistant Organisms: None Reported Past Surgical History: Appendectomy, Section Additional Past Surgical History / Comment(s): ankles, feet, hand & knee surgery. Cyst removed from her ovary. Past Anesthesia/Blood Transfusion Reactions: No Reported Reaction Past Psychological History: No Psychological Hx Reported Smoking Status: Never smoker Past Alcohol Use History: Daily - Past Family History Mother Family Medical History: No Reported History Father Family Medical History: Cancer Additional Family Medical History / Comment(s): throat General Exam - General Exam Comments Initial Comments: PHYSICAL EXAM: General Impression: Alert and oriented x3, not in acute distress HEENT: Normocephalic atraumatic, extra-ocular movements intact, pupils equal and reactive to light bilaterally, mucous membranes moist. Cardiovascular: Heart regular rate and rhythm Chest: Able to complete full sentences, no retractions, no tachypnea Abdomen: abdomen soft, non-tender, non-distended, no organomegaly Musculoskeletal: Pulses present and equal in all extremities, no peripheral edema Motor: no focal deficits noted Neurological: CN II-XII grossly intact, contracted right upper extremity, no drift to the left arm and bilateral lower legs, no sensory deficits to light touch, no facial asymmetry, nonaphasic nondysarthric Skin: Intact with no visualized rashes Psych: Normal affect and mood Limitations: no limitations Course Vital Signs 10/18/24 10/18/24 10/18/24 09:00 10:08 11:00 Temperature 98.3 F 98 F Pulse Rate 72 77 83 Respiratory 18 18 18 Rate Blood Pressure 112/63 112/76 116/83 O2 Sat by Pulse 100 98 93 L Oximetry EKG Findings - EKG Comments: EKG Findings:: My EKG interpretation: Ventricular rate 71, A-fib, QRS 89, QTc 400. No QTC prolongation, no ST or T-wave changes noted. Concerning for new onset A-fib Medical Decision Making - Medical Decision Making Was pt. sent in by a medical professional or institution (, PA, QUALITY ASSURANCE ASSESSOR, urgent care, hospital, or [place] health care facility...) When possible be specific @ -No Did you speak to anyone other than the patient for history (EMS, parent, family, police, friend...)? What history was obtained from this source @ -See above Did you review nursing and triage notes (agree or disagree)? Why? @ -I reviewed and agree with nursing and triage notes Were old charts reviewed (outside hosp., previous admission, EMS record, old EKG, old radiological studies, urgent care reports/EKG's, [place] health care facility records)? Report findings @ -No old charts were reviewed Differential Diagnosis (chest pain, altered mental status, abdominal pain women, abdominal pain men, vaginal bleeding, musculoskeletal, weakness, fever, dyspnea, syncope, headache, dizziness, GI bleed, back pain, seizure, CVA, palpatations, mental health)? @ - Differential CVA: Ischemic stroke, hemorrhagic stroke, brain tumor, atypical migraine, Wernicke's encephalopathy, seizure, multiple sclerosis, meningitis, encephalitis, hypoglycemia, Guillain-Hernandez, electrolytes disturbance, myasthenia gravis.... This is not meant to be an all-inclusive list EKG interpreted by me (3pts min.). @ -See above X-rays interpreted by me (1pt min.). @ -Chest x-ray shows no acute processes CT interpreted by me (1pt min.). @ -CT brain CT angiography shows no acute processes U/S interpreted by me (1pt. min.). @ -None done What testing was considered but not performed or refused? (CT, X-rays, U/S, labs)? Why? @ -None What meds were considered but not given or refused? Why? @ -None Was smoking cessation discussed for >3mins.? @ -No Were there social determinants of health that impacted care today? How? (Homelessness, low income, unemployed, alcoholism, drug addiction, transportation, low edu. Level, literacy, decrease access to med. care, usp, rehab)? @ -No Was there de-escalation of care discussed even if they declined (Discuss DNR or withdrawal of care, Hospice)? DNR status @ -No What co-morbidities impacted this encounter? (DM, HTN, Smoking, COPD, CAD, Cancer, CVA, ARF, Chemo, Hep., AIDS, mental health diagnosis, sleep apnea, morbid obesity)? @ -CVA history, seizure history Was patient admitted / discharged? Hospital course, mention meds given and route, prescriptions, significant lab abnormalities, going to OR and other pertinent info. @ -69-year-old female presents emergency department with wake-up CVA. Vital signs upon arrival are within acceptable limits. Patient has NIH score of 2 with motor function and sensory function loss of the right upper extremity. Family states that patient has extensive history of CVAs. Patient not a candidate for thrombolytics due to duration of symptoms outside the window. Code stroke patient in the last. CT brain shows no bleed. CT angiography shows no large vessel occlusion. Labs are unremarkable. Patient requesting transfer to [facility] due to most of her care historically has been performed there. Patient given aspirin. Case discussed with Dr. Wright at [facility] who is willing to accept patient for ER to inpatient transfer. Did you discuss the management of the patient with other professionals (professionals i.e. DrJorge, PA, QUALITY ASSURANCE ASSESSOR, lab, RT, psych nurse, psychiatric social worker, wool supplier, teacher, chief financial officer, shoe caser)? Give summary @ -See above Was critical care preformed (if so, how long)? @ -Yes, 33 minutes for code stroke Undiagnosed new problem with uncertain prognosis? @ -No Drug Therapy requiring intensive monitoring for toxicity (Heparin, Nitro, Insulin, Cardizem)? @ -No Were any procedures done? @ -No Diagnosis/symptom? Acute, or Chronic, or Acute on Chronic? Uncomplicated (without systemic symptoms) or Complicated (systemic symptoms)? @ -CVA Side effects of treatment? @ -No Exacerbation, Progression, or Severe Exacerbation? @ -No Poses a threat to life or bodily function? How? (Chest pain, USA, AL, pneumonia, PE, COPD, DKA, ARF, appy, cholecystitis, CVA, Diverticulitis, Homicidal, Suicidal, threat to staff... and all critical care pts) @ -yes - Lab Data Result diagrams: 10/18/24 10:04 10/18/24 10:04 Lab Results 10/18/24 10/18/24 10/18/24 Range/Units 10:04 10:04 10:04 WBC 7.9 (3.8-10.6) k/uL RBC 3.46 L (3.80-5.40) m/uL Hgb 10.5 L (11.4-16.0) gm/dL Hct 31.9 L (34.0-46.0) % MCV 92.2 (80.0-100.0) fL MCH 30.3 (25.0-35.0) pg MCHC 32.8 (31.0-37.0) g/dL RDW 13.4 (11.5-15.5) % Plt Count 316 (150-450) k/uL MPV 6.9 Neutrophils % 53 % Lymphocytes % 37 % Monocytes % 6 % Eosinophils % 2 % Basophils % 0 % Neutrophils # 4.2 (1.3-7.7) k/uL Lymphocytes # 2.9 (1.0-4.8) k/uL Monocytes # 0.4 (0-1.0) k/uL Eosinophils # 0.2 (0-0.7) k/uL Basophils # 0.0 (0-0.2) k/uL PT 10.7 (10.0-12.5) sec INR 1.0 (<1.2) APTT 20.6 L (22.0-30.0) sec Sodium 133 L (137-145) mmol/L Potassium 4.6 (3.5-5.1) mmol/L Chloride 99 (98-107) mmol/L Carbon Dioxide 18 L (22-30) mmol/L Anion Gap 16 mmol/L BUN 18 H (7-17) mg/dL Creatinine 1.29 H (0.52-1.04) mg/dL Est GFR (CKD-EPI)AfAm 49 (>60 ml/min/1.73 sqM) Est GFR (CKD-EPI)NonAf 43 (>60 ml/min/1.73 sqM) Glucose 90 (74-99) mg/dL Calcium 9.7 (8.4-10.2) mg/dL Total Bilirubin 0.6 (0.2-1.3) mg/dL AST 26 (14-36) U/L ALT 26 (4-34) U/L Alkaline Phosphatase 156 H (38-126) U/L Creatine Kinase 64 (30-135) U/L Troponin I (0.000-0.034) ng/mL Total Protein 7.6 (6.3-8.2) g/dL Albumin 4.6 (3.5-5.0) g/dL 10/18/24 Range/Units 10:04 WBC (3.8-10.6) k/uL RBC (3.80-5.40) m/uL Hgb (11.4-16.0) gm/dL Hct (34.0-46.0) % MCV (80.0-100.0) fL MCH (25.0-35.0) pg MCHC (31.0-37.0) g/dL RDW (11.5-15.5) % Plt Count (150-450) k/uL MPV Neutrophils % % Lymphocytes % % Monocytes % % Eosinophils % % Basophils % % Neutrophils # (1.3-7.7) k/uL Lymphocytes # (1.0-4.8) k/uL Monocytes # (0-1.0) k/uL Eosinophils # (0-0.7) k/uL Basophils # (0-0.2) k/uL PT (10.0-12.5) sec INR (<1.2) APTT (22.0-30.0) sec Sodium (137-145) mmol/L Potassium (3.5-5.1) mmol/L Chloride (98-107) mmol/L Carbon Dioxide (22-30) mmol/L Anion Gap mmol/L BUN (7-17) mg/dL Creatinine (0.52-1.04) mg/dL Est GFR (CKD-EPI)AfAm (>60 ml/min/1.73 sqM) Est GFR (CKD-EPI)NonAf (>60 ml/min/1.73 sqM) Glucose (74-99) mg/dL Calcium (8.4-10.2) mg/dL Total Bilirubin (0.2-1.3) mg/dL AST (14-36) U/L ALT (4-34) U/L Alkaline Phosphatase (38-126) U/L Creatine Kinase (30-135) U/L Troponin I <0.012 (0.000-0.034) ng/mL Total Protein (6.3-8.2) g/dL Albumin (3.5-5.0) g/dL Disposition Clinical Impression: Cerebrovascular accident (CVA) Disposition: OTHER INSTITUTION NOT DEFINED Condition: Serious Referrals: Garfield Staton MD [Primary Care Provider] - 1-2 days - Out of Hospital Transfer - Req. Specs Out of Hospital Transfer - Requested Specifics: Other Emergency Center ( [place])
[2024-10-18 10:15] LABS: RBC 3.46 m/uL (3.80-5.40); WBC 7.9 k/uL (3.8-10.6)
[2024-10-18 10:16] LABS: Basophils % (A) 0 %; Eosinophils # (A) 0.2 k/uL (0-0.7); Eosinophils % (A) 2 %; HCT 31.9 % (34.0-46.0); HGB 10.5 gm/dL (11.4-16.0); Lymphocytes # (A) 2.9 k/uL (1.0-4.8); Lymphocytes % (A) 37 %; MCH 30.3 pg (25.0-35.0); MCHC 32.8 g/dL (31.0-37.0); MCV 92.2 fL (80.0-100.0); Mean Platelet Volume 6.9; Monocytes # (A) 0.4 k/uL (0-1.0); Monocytes % (A) 6 %; Neutrophils # (A) 4.2 k/uL (1.3-7.7); Neutrophils % (A) 53 %; Platelet Count 316 k/uL (150-450); RDW 13.4 % (11.5-15.5)
--- NOTE | 2024-10-18 10:22 | CT ---
EXAMINATION TYPE: CT brain wo con DATE OF EXAM: 10/18/2024 10:14 AM COMPARISON: None. CLINICAL INDICATION: Female, 69 years old with history of Neuro deficit, acute, stroke suspected, AMS TECHNIQUE: Brain: Axial CT images of the brain were obtained with coronal and sagittal reformats created and rev iewed. Contrast used: None. Oral contrast used: None. CT DLP: 1095.1 mGycm, Automated exposure control for dose reduction was used. FINDINGS: Brain: Extra-axial spaces: No abnormal extra-axial fluid collections. Ventricular system: Within normal limits Cerebral parenchyma: Encephalomalacia changes left frontal lobe, right parietal/temporal lobe/occipit al, left parietal/occipital lobe. Left kun hypodensity a possibly remote injury. No acute intraparen chymal hemorrhage or mass effect. The remainder of the root-white junctions are well differentiated. Scattered hypoattenuating areas are seen within the white matter. Cerebellum: Unremarkable. Mass effect: No evidence of midline shift. Intracranial vasculature: unremarkable Soft tissues: Normal. Calvarium/osseous structures: No depressed skull fracture. Paranasal sinuses and mastoid air cells: Mild scattered paranasal sinus disease. Visualized orbits: Orbital contents are intact. IMPRESSION: Scattered areas of what appears to be remote injuries throughout the brain, superimposed acute proces s along the margin is not excluded no priors available for comparison. Consider MRI evaluation. [facility], , 10/18/2024 10:20 AM
--- NOTE | 2024-10-18 10:27 | CT ---
EXAMINATION TYPE: CT angio head neck DATE OF EXAM: 10/18/2024 10:20 AM COMPARISON: CT brain same day. CLINICAL INDICATION: Female, 69 years old with history of Neuro deficit, acute, stroke suspected; [facility] , TECHNIQUE: Axially acquired helical CT angiogram of the head and neck was obtained with contrast. Axi al images are supplemented with 3D reconstructions and MIP images which were post-processed at an in dependent workstation. NASCET criteria used. Contrast used:65 mL of Isovue 300 with IV Contrast, Oral contrast used: None. CT DLP: 1504 mGycm, Automated exposure control for dose reduction was used. FINDINGS: CTA HEAD: No evidence of acute intracranial hemorrhage, mass effect, or midline shift. The ventricles, sulci, a nd cisterns are unremarkable. Vertebral arteries: The vertebral arteries are patent. Vertebral artery dominance: Codominant Basilar artery: The basilar artery is intact. The basilar artery bifurcation is normal. Internal Carotid arteries: The cervical, petrous, cavernous and supraclinoid segments are normal. DAVIS: Patent with no evidence of aneurysm. ACOM: Present without evidence of aneurysm. MCA: Patent with no evidence of aneurysm. LINUX ADMIN: Patent with no evidence of aneurysm. PCOM: Hypoplastic bilaterally. Dural sinuses: Patent. CTA NECK: Right Carotid System: The common carotid and external carotid arteries are patent. There is less than 25% stenosis at the c arotid bifurcation secondary to calcified/noncalcified plaque. The rest of the internal carotid arter y is patent. Left Carotid System: The common carotid and external carotid arteries are patent. There is less than 25% stenosis at the c arotid bifurcation secondary to calcified/noncalcified plaque. The rest of the internal carotid arter y is patent. Vertebral arteries are patent without evidence hemodynamically significant stenosis. There is a three-vessel aortic arch. The origins of the great vessels are patent. No evidence of hemo dynamically significant stenosis. IMPRESSION: 1. No evidence of dissection of the cervical internal carotid arteries or vertebral arteries. 2. No any evidence of significant stenosis at the carotid bifurcations. 3. No evidence of intracranial high-grade stenosis or intracranial aneurysm. [facility], , 10/18/2024 10:22 AM
--- NOTE | 2024-10-18 10:31 | XR ---
EXAMINATION TYPE: XR chest 2V DATE OF EXAM: 10/18/2024 CLINICAL INDICATION: Female, 69 years old with history of altered mental status, weakness. TECHNIQUE: Frontal and lateral views of the chest are obtained. COMPARISON: Chest x-ray January 27, 2024 FINDINGS: There is no focal air space opacity, pleural effusion, or pneumothorax seen. The cardiac silhouette size remains within normal limits. The osseous structures are intact. IMPRESSION: No acute cardiopulmonary process. [facility], , 10/18/2024 10:29 AM
[2024-10-18 10:32] LABS: Prothrombin Time 10.7 sec (10.0-12.5)
[2024-10-18 10:33] LABS: Partial Thromboplastin Time 20.6 sec (22.0-30.0)
[2024-10-18 10:48] LABS: ALT 26 U/L (4-34); AST 26 U/L (14-36); African American GFR (CKD) 49 (>60 ml/min/1.73 sqM); Albumin 4.6 g/dL (3.5-5.0); Alkaline Phosphatase 156 U/L (38-126); Anion Gap 16 mmol/L; Blood Urea Nitrogen 18 mg/dL (7-17); Calcium 9.7 mg/dL (8.4-10.2); Carbon Dioxide 18 mmol/L (22-30); Chloride 99 mmol/L (98-107); Creatine Kinase 64 U/L (30-135); Glucose 90 mg/dL (74-99); Non-African American GFR(CKD) 43 (>60 ml/min/1.73 sqM); Potassium 4.6 mmol/L (3.5-5.1); Sodium 133 mmol/L (137-145); Total Bilirubin 0.6 mg/dL (0.2-1.3); Total Protein 7.6 g/dL (6.3-8.2)
[2024-10-18] MEDS: ASPIRIN 81 MG PO STA (11:21)
--- NOTE | 2024-10-18 18:55 | P.CONS ---
History of Present Illness - Reason for Consult Consult date: 10/18/24 - History of Present Illness 69 year old F with history of CVA, HTN, Seizure disorder, CKD stage III, GERD presents to the ED for right sided weakness. Family at bedside providing majority of history. Apparently patient fell out of bed. Denies LOC or head trauma. She reported complete RU and RLE paralysis. Denies any slurred speech, confusion, difficulty swallowing or speaking. She follows many specialists out of [facility]. Currently her weakness is improving but not quite back to baseline. She is awaiting transfer to [facility]. In the ED she underwent extensive evaluation. BP 132/64, HR 90, RR 18, 98% on RA, T 98F. CBC, Coag panel, CMP significant for RBC 3.46, Hg 10.5, Hct 31.9, APTT 20.6, Na 133, bicarb 18, BUN 18, Cr 1.29, alk phos 156. Trop < 0.012 x 1. EKG shows concern for A-Fib rate of 71. Brain CT scattered areas of remote injuries throughout the brain superimposed acute process not excluded. CTA shows no significant stenosis. CXR no acute process. General: non toxic, no distress, appears at stated age Derm: warm, dry Head: atraumatic, normocephalic, symmetric Mouth: no lip lesion, mucus membranes moist Cardiovascular: S1S2 reg, no murmur Lungs: Clear to auscultation bilaterally, no rales , no accessory muscle use Ext: no gross muscle atrophy, no edema, no contractures Neuro: RUE 3/5 strength, RLE 4/5 strength, 5/5 SINDY and LUE Psych: Alert and oriented. Based on my assessment of this patient, this patient meets a high complexity level of care. Right sided weakness concerning for acute CVA JOSSE on CKD with metabolic acidosis and hyponatremia Normocytic anemia likely AOCD from CKD Hypertenion Seizure disorder GERD Awaiting transfer to [facility]. Renal function appears at baseline (when compared to 2022 labs). Recommend permissive hypertension for 24-48H. Holding HCTZ, Losartan, Metoprolol, Nifedipine and HCTZ. Restart Eliquis 5 mg PO BID, Lipitor 80 mg PO QHS and ASA 81 mg PO QD. Restart Keppra 500 mg PO BID. Restart Protonix 40 mg PO QD. CODE STATUS: FULL CODE. DVT Prophylaxis: Eliquis GI Prophylaxis: Protonix PO Designated medical POA if patient is not able to make medical decisions for themselves: I have reviewed the following home service consultant notes: ED note. I have reviewed the results of the following tests: As above. I have ordered the following tests: As above. I have discussed the care of this patient with the following independent historian: Family at bedside. I have independently interpreted the following test below: CXR. I have discussed the management of this patient with the following physician: Past Medical History Past Medical History: No Reported History Additional Past Medical History / Comment(s): Arthritis in rt foot History of Any Multi-Drug Resistant Organisms: None Reported Past Surgical History: Appendectomy, Section Additional Past Surgical History / Comment(s): ankles, feet, hand & knee surgery. Cyst removed from her ovary. Past Anesthesia/Blood Transfusion Reactions: No Reported Reaction Past Psychological History: No Psychological Hx Reported Smoking Status: Never smoker Past Alcohol Use History: Daily - Past Family History Mother Family Medical History: No Reported History Father Family Medical History: Cancer Additional Family Medical History / Comment(s): throat Medications and Allergies Home Medications Medication Instructions Recorded Confirmed Type Folic Acid 1 mg PO DAILY #60 tab 06/09/23 10/18/24 Rx Apixaban [Eliquis] 5 mg PO DAILY 10/18/24 10/18/24 History Aspirin EC [Ecotrin Low Dose] 81 mg PO DAILY 10/18/24 10/18/24 History Atorvastatin [Lipitor] 80 mg PO HS 10/18/24 10/18/24 History Calcium Carbonate [Calcium] 600 mg PO DAILY 10/18/24 10/18/24 History Cholecalciferol (Vitamin D3) 50 mcg PO DAILY 10/18/24 10/18/24 History [Vitamin D3 (50 Mcg = 2000 Iu)] Cyanocobalamin (Vitamin B-12) 1,000 mcg PO Q48H 10/18/24 10/18/24 History [Vitamin B-12] Ferrous Sulfate [Feosol] 325 mg PO DAILY 10/18/24 10/18/24 History Loratadine [Claritin] 10 mg PO DAILY 10/18/24 10/18/24 History Losartan [Cozaar] 50 mg PO BID 10/18/24 10/18/24 History Metoprolol Succinate [Metoprolol 25 mg PO DAILY 10/18/24 10/18/24 History Succinate ER] Multivitamins, Thera [Multivitamin 1 tab PO DAILY 10/18/24 10/18/24 History (formulary)] NIFEdipine XL [Procardia XL] 60 mg PO DAILY 10/18/24 10/18/24 History Pantoprazole [Protonix] 40 mg PO DAILY 10/18/24 10/18/24 History Sennosides/Docusate Sodium [Senna 2 tab PO DAILY 10/18/24 10/18/24 History Plus 8.6-50 mg Tablet] hydroCHLOROthiazide [Hydrodiuril] 12.5 mg PO DAILY 10/18/24 10/18/24 History levETIRAcetam [Keppra] 500 mg PO BID 10/18/24 10/18/24 History Allergies Allergy/AdvReac Type Severity Reaction Status Date / Time codeine Allergy Hallucinati Verified 10/18/24 13:12 ons Latex, Natural Rubber Allergy Anaphylaxis Verified 10/18/24 13:12 Penicillins Allergy Unknown Verified 10/18/24 13:12 Childhood Physical Exam Vitals: Vital Signs Temp Pulse Resp BP Pulse Ox 10/18/24 17:28 90 18 132/64 98 10/18/24 14:30 97 18 140/73 98 10/18/24 12:30 82 18 144/69 97 10/18/24 11:00 98 F 83 18 116/83 93 L 10/18/24 10:08 77 18 112/76 98 10/18/24 09:00 98.3 F 72 18 112/63 100 Intake and Output 10/18/24 10/18/24 10/18/24 06:59 14:59 22:59 Other: Weight 67.132 kg Results CBC & Chem 7: 10/18/24 10:04 10/18/24 10:04 Labs: Abnormal Lab Results - Last 24 Hours (Table) 10/18/24 10/18/24 10/18/24 Range/Units 10:04 10:04 10:04 RBC 3.46 L (3.80-5.40) m/uL Hgb 10.5 L (11.4-16.0) gm/dL Hct 31.9 L (34.0-46.0) % APTT 20.6 L (22.0-30.0) sec Sodium 133 L (137-145) mmol/L Carbon Dioxide 18 L (22-30) mmol/L BUN 18 H (7-17) mg/dL Creatinine 1.29 H (0.52-1.04) mg/dL Alkaline Phosphatase 156 H (38-126) U/L
[2024-10-18] MEDS: levETIRAcetam 500 MG TAB PO SCH (21:12)
[2024-10-18] MEDS: ATORVASTATIN 80 MG TAB PO SCH (21:12)
[2024-10-19] MEDS: LACTATED RINGERS 1,000 ML IV SCH (06:34)
[2024-10-19 07:22] LABS: Appearance,Urine Clear (Clear); Bilirubin,Urine Negative (Negative); Blood,Urine Negative (Negative); Color,Urine Light Yellow; Glucose,Urine (UA) Negative (Negative); Ketones,Urine Negative (Negative); Leukocyte Esterase,Urine Large (Negative); Nitrite,Urine Negative (Negative); PH, Urine 5.5 (5.0-8.0); Protein,Urine Negative (Negative); RBC,Urine 3 /hpf (0-5); Specific Gravity,Urine 1.029 (1.001-1.035); Squamous Epithelial Cell,Urine <1 /hpf (0-4); Urobilinogen,Urine <2.0 mg/dL (<2.0); WBC,Urine 26 /hpf (0-5)
[2024-10-19] MEDS ORDERED: hydroCHLOROthiazide 12.5 MG CAP PO SCH (09:00)
[2024-10-19] MEDS: CYANOCOBALAMIN 500 MCG TAB PO SCH (10:56)
[2024-10-19] MEDS: FOLIC ACID 1 MG TAB PO SCH (10:56)
[2024-10-19] MEDS: CHOLECALCIFEROL 25 MCG (1000 IU) TABLET PO SCH (10:56)
[2024-10-19] MEDS: SENNOSIDES-DOCUSATE SODIUM 1 EACH TAB PO SCH (11:05)
[2024-10-19] MEDS: FERROUS SULFATE 325 MG TAB PO SCH (11:05)
[2024-10-19] MEDS: ASPIRIN 81 MG PO SCH (11:05)
[2024-10-19] MEDS: LORATADINE 10 MG TAB PO SCH (11:05)
[2024-10-19] MEDS: CALCIUM CARBONATE 500 MG CHEWABLE PO SCH (11:05)
[2024-10-19] MEDS: PANTOPRAZOLE 40 MG TABLET PO SCH (11:06)
[2024-10-19] MEDS: APIXABAN 5 MG TAB PO SCH (11:06)
--- NOTE | 2024-10-19 11:39 | P.PN ---
Subjective Progress Note Date: 10/19/24 Hospital Course: 69 year old F with history of CVA, HTN, Seizure disorder, CKD stage III, GERD presents to the ED for right sided weakness. Family at bedside providing majority of history. Apparently patient fell out of bed. Denies LOC or head trauma. She reported complete RU and RLE paralysis. Denies any slurred speech, confusion, difficulty swallowing or speaking. She follows many specialists out of [facility]. Currently her weakness is improving but not quite back to baseline. She is awaiting transfer to [facility]. In the ED she underwent extensive evaluation. BP 132/64, HR 90, RR 18, 98% on RA, T 98F. CBC, Coag panel, CMP significant for RBC 3.46, Hg 10.5, Hct 31.9, APTT 20.6, Na 133, bicarb 18, BUN 18, Cr 1.29, alk phos 156. Trop < 0.012 x 1. EKG shows concern for A-Fib rate of 71. Brain CT scattered areas of remote injuries throughout the brain superimposed acute process not excluded. CTA shows no significant stenosis. CXR no acute process. Awaiting transfer to [facility]. Holding HCTZ, Losartan, Metoprolol, Nifedipine and HCTZ.normotensive Restart Eliquis 5 mg PO BID, Lipitor 80 mg PO QHS and ASA 81 mg PO QD. Restart Keppra 500 mg PO BID. Restart Protonix 40 mg PO QD. 10/19 started complaining of right hand pain, decreased ROM, unclear if patient had a fall on the arm, x-ray was not, patient agreed to take some Tylenol and appointments, keep arm elevated Subjective: Complaining of right arm and hand weakness, right hand pain especially in the first finger Pertinent positives and negatives as discussed above, a complete review of systems was performed and all other systems are negative. Vitals Signs Reviewed. General: [nontoxic], [no distress], [appears at stated age] Derm: [warm], [dry] Head: [atraumatic], [normocephalic], [symmetric] Eyes: [EOMI], [no lid lag], [anicteric sclera] Mouth: [no lip lesion], [mucus membranes moist] Cardiovascular: [S1S2 reg], [no murmur] Lungs: [CTA bilateral], [no rhonchi, no rales] , [no accessory muscle use] Abdominal: [soft], [ nontender to palpation], [no guarding], [no appreciable organomegaly] Ext: [no gross muscle atrophy], [no edema], [no contractures], right hand tenderness to palpation especially the first finger Neuro: [ CN II-XI grossly intact], ]RUE 3/5 strength, RLE 4/5 strength, 5/5 SINDY and LUE; sensation preserved Psych: [Alert], [oriented], [appropriate affect] Data Reviewed Today: Pertinent Labs: ordered bmp Assessment and Plan: Right sided weakness concerning for acute CVA JOSSE on CKDIII with metabolic acidosis and hyponatremia Normocytic anemia likely AOCD from CKD Hypertenion, controlled Seizure disorder GERD Awaiting transfer to [facility]. Renal function appears at baseline (when compared to 2022 labs). Recommend permissive hypertension for 48H. Holding HCTZ, Losartan, Metoprolol, Nifedipine and HCTZ. -continue IVF, ordered BMP continue Eliquis 5 mg PO BID, Lipitor 80 mg PO QHS and ASA 81 mg PO QD. Restart Keppra 500 mg PO BID. Restart Protonix 40 mg PO QD. Right arm pain: Ordered hand x-ray, Tylenol as needed for pain CODE STATUS: FULL CODE. DVT Prophylaxis: Eliquis GI Prophylaxis: Protonix PO Objective - Vital Signs Vital signs: Vital Signs Temp 97.9 F 10/18/24 21:11 Pulse 88 10/19/24 11:00 Resp 18 10/19/24 11:00 BP 122/66 10/19/24 11:00 Pulse Ox 98 10/19/24 11:00 FiO2 Intake & Output 10/18/24 10/19/24 10/19/24 18:59 06:59 18:59 Weight 67.132 kg - Labs CBC & Chem 7: 10/18/24 10:04 10/18/24 10:04 Labs: Abnormal Lab Results - Last 24 Hours (Table) 10/19/24 Range/Units 06:49 Ur Leukocyte Esterase Large H (Negative) Urine WBC 26 H (0-5) /hpf Urine WBC Clumps Rare H (None) /hpf
--- NOTE | 2024-10-19 12:13 | XR ---
EXAMINATION TYPE: XR hand complete RT DATE OF EXAM: 10/19/2024 11:46 AM COMPARISON: None. CLINICAL INDICATION: Female, 69 years old with history of fall, pain, pain TECHNIQUE: Frontal, lateral and oblique images of the right hand are obtained. FINDINGS: Osseous structures are demineralized which is noted to the radiographic sensitivity. Exam suboptimal as patient unable to completely extend fingers. There is no acute displaced fracture evide nt in the right hand. Severe degenerative narrowing second through fourth MCP joints. Mild to moderat e degenerative change throughout the PIP and DIP joints of the fingers. Overlying soft tissue is unre markable. IMPRESSION: There is no acute displaced fracture in the right hand. [facility], , 10/19/2024 12:10 PM
[2024-10-19 14:05] VITALS: TEMP 98.7
[2024-10-19 14:53] LABS: African American GFR (CKD) 43 (>60 ml/min/1.73 sqM); Anion Gap 11 mmol/L; Blood Urea Nitrogen 22 mg/dL (7-17); Calcium 9.3 mg/dL (8.4-10.2); Carbon Dioxide 25 mmol/L (22-30); Chloride 97 mmol/L (98-107); Glucose 112 mg/dL (74-99); Non-African American GFR(CKD) 37 (>60 ml/min/1.73 sqM); Potassium 4.7 mmol/L (3.5-5.1); Sodium 133 mmol/L (137-145)
[2024-10-19 22:00] VITALS: BP 131/59; PULSE 90; RESP 18
[2024-10-20] MEDS ORDERED: MULTIVITAMINS, THERA 1 EACH TAB PO SCH (09:00)
== END 2024-10-19 23:52 | disposition other institution (70) ==
LOC: EC 08:59
DX: I63.9 Cerebral infarction, unspecified (principal); R29.702 NIHSS score 2; G40.909 Epilepsy, unspecified, not intractable, without status epilepticus
CPT/HCPCS: 99291 ×2; 36415 ×2; 93005; 80053; 80048; 82550; 84484; 85025; 85610; 85730; 81001; 73130; 71046; 70496; 70450; 70498; Q9967